=== PATIENT | male | born 1970 | race American Indian/Alaskan Native ===

== ENCOUNTER 2021-12-10 13:20 | Observation (INO) | payer SELFPAY ==
--- NOTE | 2021-12-10 14:54 | XRay Report ---
CHEST 2 VIEWS INDICATION / CLINICAL INFORMATION: shortness of breath. COMPARISON: None available. FINDINGS: SUPPORT DEVICES: None. HEART / MEDIASTINUM: No significant abnormality. LUNGS / PLEURA: No significant pulmonary abnormality. No significant pleural effusion. No pneumothora x. ADDITIONAL FINDINGS: No significant additional findings. IMPRESSION: 1. No acute abnormality of the chest. Signer Name: Benito Up MD Signed: 12/10/2021 2:50 PM Workstation Name: [id number]
--- NOTE | 2021-12-10 15:13 | Emergency Department Report ---
<CELENA BARNES L - Last Filed: 12/10/21 17:21> ED General Adult HPI - General Chief complaint: Dyspnea/Respdistress Stated complaint: AVE Source: patient Mode of arrival: Ambulatory Limitations: No Limitations - History of Present Illness Initial comments: 51-year-old male presents to the ED complaining of headache ,shortness of breath and runny nose. Patient states the symptoms started this a.m.. Patient is alert and oriented x3. No acute distress noted. No ill appearance noted. She denies any chest pain or nausea /vomiting . Patient is talking on phone. Patient states that he is Covid vaccinated. Severity scale (0 -10): 0 Associated Symptoms: denies other symptoms - Related Data Allergies Allergy/AdvReac Type Severity Reaction Status Date / Time No Known Allergies Allergy Unverified 12/10/21 15:49 ED Review of Systems Constitutional: denies: chills, fever Eyes: denies: eye pain, eye discharge, vision change ENT: denies: ear pain, throat pain Respiratory: denies: cough, shortness of breath, wheezing Cardiovascular: denies: chest pain, palpitations Endocrine: no symptoms reported Gastrointestinal: denies: abdominal pain, nausea, diarrhea Genitourinary: denies: urgency, dysuria Musculoskeletal: denies: back pain, joint swelling, arthralgia Skin: denies: rash, lesions Neurological: denies: headache, weakness, paresthesias Psychiatric: denies: anxiety, depression Hematological/Lymphatic: denies: easy bleeding, easy bruising ED Physical Exam - General Limitations: No Limitations General appearance: alert, in no apparent distress - Head Head exam: Present: atraumatic, normocephalic - Eye Eye exam: Present: normal appearance - ENT ENT exam: Present: mucous membranes moist - Neck Neck exam: Present: normal inspection - Respiratory Respiratory exam: Present: normal lung sounds bilaterally. Absent: respiratory distress - Cardiovascular Cardiovascular Exam: Present: regular rate, normal rhythm. Absent: systolic murmur, diastolic murmur, rubs, gallop - GI/Abdominal GI/Abdominal exam: Present: soft, normal bowel sounds - Rectal Rectal exam: Present: deferred - Extremities Exam Extremities exam: Present: normal inspection - Back Exam Back exam: Present: normal inspection - Neurological Exam Neurological exam: Present: alert, oriented X3 - Psychiatric Psychiatric exam: Present: normal affect, normal mood - Skin Skin exam: Present: warm, dry, intact, normal color. Absent: rash ED Medical Decision Making - Radiology Data [facility] [address] [place] [address] XRay Report Signed Patient: SALO SIMMS MR#: [id number] 4 : 1970 Acct:[id number] Age/Sex: 51 / M ADM Date: 12/10/21 Loc: ED Attending Dr: Ordering Physician: YULIYA JENNINGS Date of Service: 12/10/21 Procedure(s): XR chest routine 2V Accession Number(s): [id number] cc: YULIYA JENNINGS Fluoro Time In Minutes: CHEST 2 VIEWS INDICATION / CLINICAL INFORMATION: shortness of breath. COMPARISON: None available. FINDINGS: SUPPORT DEVICES: None. HEART / MEDIASTINUM: No significant abnormality. LUNGS / PLEURA: No significant pulmonary abnormality. No significant pleural effusion. No pneumothorax. ADDITIONAL FINDINGS: No significant additional findings. IMPRESSION: 1. No acute abnormality of the chest. Signer Name: Benito Up MD Signed: 12/10/2021 2:50 PM Workstation Name: [id number] Transcribed By: [place] Dictated By: Benito Up MD Electronically Authenticated By: Benito Up MD Signed Date/Time: 12/10/21 145 DD/ 144 TD/TT: - Medical Decision Making 51-year-old male presents to the ED complaining of headache ,shortness of breath and runny nose. Patient states the symptoms started this a.m.. Patient is alert and oriented x3. No acute distress noted. No ill appearance noted. She denies any chest pain or nausea /vomiting . Patient is talking on phone. Patient states that he is Covid vaccinated. Physical examination unremarkable. Chest x-ray showed no abnormality. Patient EKG is abnormal. consult with ,. Dr. Acevedo taking over patient ED Disposition Clinical Impression: Chest pain, Cocaine abuse Disposition: ADMITTED INPATIENT Is pt being admited?: No Does the pt Need Aspirin: No Condition: Stable Instructions: Nonspecific Chest Pain, Adult Additional Instructions: Return to ED for any worsening symptom Your symptoms appear most consistent with a nonspecific viral syndrome. However, given this current pandemic, COVID-19 is in the differential of possibilities. Despite your previous negative COVID-19 test, I do recommend repeat outpatient Covid 19 testing. In the meantime, isolate/quarantine yourself and stay away from anyone who is elderly, immunocompromised or chronically ill. You can use ibuprofen every 6-8 hours and Tylenol every 4-8 hours, using the dosing on the back of the bottle, as needed for any fever or body aches. Return to the emergency department with any worsening of your symptoms, development of chest pain or shortness of breath, or with any acute distress. Referrals: MIKE BLACKMAN MD [Primary Care Provider] - 3-5 Days <MARLENI ACEVEDO - Last Filed: 12/10/21 18:42> ED Review of Systems ROS: Stated complaint: AVE Other details as noted in HPI ED Course Vital Signs 12/10/21 12/10/21 12/10/21 14:08 15:45 16:15 Temperature 98.0 F Pulse Rate 89 82 74 Respiratory 18 14 22 Rate Blood Pressure 155/82 131/75 Blood Pressure 132/87 [Right] O2 Sat by Pulse 99 100 100 Oximetry 12/10/21 12/10/21 16:31 17:01 Temperature Pulse Rate 74 82 Respiratory 21 11 L Rate Blood Pressure 133/78 129/82 Blood Pressure [Right] O2 Sat by Pulse 100 100 Oximetry - Reevaluation(s) Reevaluation #1: 12/10/21 18:[address] segment elevation in V2-V5 spoke with dr Ramos he thinks it might be early regularization, recommended repeat EKG in1 hour and trop , repeat ekg didn't show any change to first one , trop was negative spoke to him again, he will take him for angiogram after CT 12/10/21 18:39 ED Medical Decision Making - Lab Data Result diagrams: 12/10/21 15:52 12/10/21 15:52 Critical care attestation.: If time is entered above; I have spent that time in minutes in the direct care of this critically ill patient, excluding procedure time. ED Disposition Is pt being admited?: Yes Does the pt Need Aspirin: Yes
[2021-12-10] MEDS ORDERED: SODIUM CHLORIDE 0.9% 1000 ML 1,000 ML IV ONE (16:30)
[2021-12-10] MEDS ORDERED: ENOXAPARIN 100 MG/1 ML INJ SUB-Q ONE (16:30)
[2021-12-10] MEDS ORDERED: ASPIRIN 325 MG TAB PO ONE ×2 (16:30→18:42)
[2021-12-10 16:32] LABS: Basophils % (Auto) 0.4 % (0.0-1.8); Eosinophils # (Auto) 0.1 K/mm3 (0.0-0.4); Eosinophils % (Auto) 1.4 % (0.0-4.3); Hematocrit 37.4 % (35.5-45.6); Lymphocytes # (Auto) 2.8 K/mm3 (1.2-5.4); Lymphocytes % (Auto) 31.4 % (13.4-35.0); Mean Corpuscular HGB Conc 35 % (32-34); Mean Corpuscular Volume 93 fl (84-94); Monocytes # (Auto) 0.8 K/mm3 (0.0-0.8); Monocytes % (Auto) 8.8 % (0.0-7.3); Platelet Count 334 K/mm3 (140-440); Red Blood Count 4.02 M/mm3 (3.65-5.03); Red Cell Distribution Width 14.1 % (13.2-15.2)
[2021-12-10 16:58] LABS: Alanine Aminotransferase 17 units/L (7-56); Albumin 4.5 g/dL (3.9-5); BUN/Creatinine Ratio 19; Blood Urea Nitrogen 15 mg/dL (9-20); Hemolysis Index 18
[2021-12-10 18:28] LABS: Bilirubin,Urine NEG (Negative); Blood,Urine SM (Negative); Color,Urine Yellow (Yellow); Mucus,Urine FEW /HPF; Protein,Urine <15 mg/dL mg/dL (Negative); Urobilinogen,Urine < 2.0 mg/dL (<2.0)
[2021-12-10] MEDS ORDERED: fentaNYL 100 MCG/2 ML INJ ONE (18:29)
[2021-12-10] MEDS ORDERED: MIDAZOLAM 2 MG/2 ML INJ ONE (18:29)
[2021-12-10] MEDS ORDERED: LIDOCAINE (2%) 20 MG/1 ML VIAL 20 ML MDV INFILTRATI ONE ×4 (18:29→19:56)
[2021-12-10] MEDS ORDERED: HEPARIN 10,000 UNITS/10 ML VIAL ONE (18:29)
[2021-12-10] MEDS ORDERED: VERAPAMIL 5 MG/2 ML INJ ONE (18:29)
[2021-12-10] MEDS ORDERED: HEPARIN/NS 5000 UNIT/500ML 1,000 ML IR ONE (18:29)
[2021-12-10] MEDS ORDERED: NITROGLYCERIN SYRINGE 3 ML ONE (18:30)
[2021-12-10] MEDS ORDERED: SODIUM CHLORIDE 0.9% 1000 ML 1,000 ML ONE (18:34)
--- NOTE | 2021-12-10 18:37 | Cat Scan Report ---
CTA CHEST WITH CONTRAST INDICATION / CLINICAL INFORMATION: SOB. TECHNIQUE: Axial CT images were obtained through the chest after injection of 75 cc of Omnipaque 350 IV contrast. 3 plane MIP and/or 3D reconstructions were produced. All CT scans at this location are p erformed using CT dose reduction for ALARA by means of automated exposure control. COMPARISON: Chest radiograph from earlier in the day FINDINGS: PULMONARY ARTERIES: No pulmonary emboli. THORACIC AORTA: No significant abnormality. HEART: No significant abnormality. CORONARY ARTERY CALCIFICATION: None. MEDIASTINUM / NANCY: No significant abnormality. PLEURA: No pleural effusion. No pneumothorax. LUNGS: Mild frontal lobe predominant paraseptal emphysema. No concerning mass, suspicious pulmonary n odule or focal consolidation. ADDITIONAL FINDINGS: None. UPPER ABDOMEN: No acute findings. SKELETAL STRUCTURES: There is increased sclerosis of the L1 right transverse process. There is acute fracture of the right L2 transverse process. There is ankylosis of the thoracic vertebrae.. IMPRESSION: 1. No CT evidence for pulmonary embolism. 2. No acute findings. 3. Mild upper lobe predominant paraseptal emphysema. 4. Sclerotic lesion involving the right transverse process of L1. Bone scan is recommended for furthe r evaluation. 5. Ankylosis and thoracic vertebrae. Signer Name: Alverto Price DO Signed: 12/10/2021 6:33 PM Workstation Name: [id number]
[2021-12-10 18:39] LABS: Amphetamine Screen,Urine PRESUMPTIVE NEGATIVE; Benzodiazepines Screen,Urine PRESUMPTIVE NEGATIVE; Cannabinoid Screen,Urine PRESUMPTIVE NEGATIVE; Cocaine Screen,Urine PRESUMPTIVE POSITIVE; Methadone Screen,Urine PRESUMPTIVE NEGATIVE; Opiate Screen,Urine PRESUMPTIVE NEGATIVE
[2021-12-10] MEDS ORDERED: MIDAZOLAM 2 MG/2 ML INJ IV ONE ×3 (18:46→19:54)
[2021-12-10] MEDS ORDERED: fentaNYL 100 MCG/2 ML INJ IV ONE ×3 (18:46→19:54)
[2021-12-10] MEDS ORDERED: ACETAMINOPHEN 325 MG TAB PO PRN (19:11)
[2021-12-10] MEDS ORDERED: ONDANSETRON 4 MG/2 ML INJ IV PRN (19:11)
[2021-12-10] MEDS ORDERED: MORPHINE 2 MG/1 ML INJ IV PRN (19:11)
[2021-12-10] MEDS ORDERED: HYDROmorphone 1 MG/1 ML INJ IV PRN (19:11)
[2021-12-10] MEDS ORDERED: SODIUM CHLORIDE 0.9% 1000 ML 1,000 ML IV SCH (19:15)
[2021-12-10] MEDS ORDERED: VERAPAMIL 5 MG/2 ML INJ ART-SHEATH ONE (19:56)
[2021-12-10] MEDS ORDERED: NITROGLYCERIN 600 MCG/3 ML SYRINGE ART-SHEATH ONE (19:56)
[2021-12-10] MEDS ORDERED: HEPARIN 10,000 UNITS/10 ML VIAL ART-SHEATH ONE (19:56)
--- NOTE | 2021-12-10 20:22 | Consultation ---
History of Present Illness Consult date: 12/10/21 Consult reason: chest pain, shortness of breath, other (Abnormal EKG) History of present illness: The patient is a 51-year-old man with no prior cardiac history, presented to the emergency room with shortness of breath which began earlier today. ECG done in the emergency room showed J-point elevation across the precordium V2 through V6, with no reciprocal changes. The morphology of the ECG was consistent with normal variant early repolarization NOT ST elevation myocardial infarction. Unfortunately, we were unable to access a prior ECG for comparison, but patient reported recurrent symptoms, cardiac catheterization was recommended for recurrent symptoms in the setting of a noncardiac diagnostic ECG. Cardiac catheterization performed via the right radial approach found essentially angiographically normal coronary arteries, and normal left ventricular systolic function with ejection fraction 60%. Past History Past Medical History: other (Tobacco abuse, cocaine abuse) Medications and Allergies Allergies Allergy/AdvReac Type Severity Reaction Status Date / Time No Known Allergies Allergy Unverified 12/10/21 15:49 Active Meds: Active Medications Acetaminophen (Acetaminophen 325 Mg Tab) 650 mg PO Q4H PRN PRN Reason: Pain MILD(1-3)/Fever >100.5/DUMONT Famotidine (Famotidine 20 Mg/2 Ml Inj) 20 mg IV BID [facility] Heparin Sodium (Porcine) (Heparin 5,000 Unit/1 Ml Vial) 5,000 unit SUB-Q Q12HR THAO Hydromorphone HCl (Hydromorphone 1 Mg/1 Ml Inj) 0.5 mg IV Q3H PRN PRN Reason: Pain , Severe (7-10) Sodium Chloride (Nacl 0.9% 1000 Ml) 1,000 mls @ 100 mls/hr IV DIRECT THAO Morphine Sulfate (Morphine 2 Mg/1 Ml Inj) 2 mg IV Q4H PRN PRN Reason: Pain, Moderate (4-6) Ondansetron HCl (Ondansetron 4 Mg/2 Ml Inj) 4 mg IV Q8H PRN PRN Reason: Nausea And Vomiting Sodium Chloride (Sodium Chloride 0.9% 10 Ml Flush Syringe) 10 ml IV BID THAO Sodium Chloride (Sodium Chloride 0.9% 10 Ml Flush Syringe) 10 ml IV PRN PRN PRN Reason: LINE FLUSH Review of Systems Cardiovascular: chest pain, shortness of breath, no orthopnea, no palpitations, no rapid/irregular heart beat, no edema, no syncope, no lightheadedness Physical Examination Vital Signs Temp Pulse Resp BP Pulse Ox 98.0 F 89 18 132/87 99 12/10/21 14:08 12/10/21 14:08 12/10/21 14:08 12/10/21 14:08 12/10/21 14:08 General appearance: no acute distress HEENT: Positive: PERRL Neck: Positive: neck supple Cardiac: Positive: Reg Rate and Rhythm Lungs: Positive: Decreased Breath Sounds Neuro: Positive: Grossly Intact Abdomen: Positive: Soft Male genitourinary: Positive: deferred Skin: Positive: Clear Extremities: Absent: edema Results 12/10/21 15:52 12/10/21 15:52 Cardiac Enzymes 12/10/21 Range/Units 15:52 AST 26 (5-40) units/L Coagulation 12/10/21 Range/Units 15:52 PT 14.3 (12.2-14.9) Sec. INR 1.00 (0.87-1.13) CBC 12/10/21 Range/Units 15:52 WBC 8.8 (4.5-11.0) K/mm3 RBC 4.02 (3.65-5.03) M/mm3 Hgb 13.0 (11.8-15.2) gm/dl Hct 37.4 (35.5-45.6) % Plt Count 334 (140-440) K/mm3 Lymph # (Auto) 2.8 (1.2-5.4) K/mm3 [place] # (Auto) 0.8 (0.0-0.8) K/mm3 Eos # (Auto) 0.1 (0.0-0.4) K/mm3 Baso # (Auto) 0.0 (0.0-0.1) K/mm3 Comprehensive Metabolic Panel 12/10/21 Range/Units 15:52 Sodium 143 (137-145) mmol/L Potassium 3.9 (3.6-5.0) mmol/L Chloride 103.4 (98-107) mmol/L Carbon Dioxide 24 (22-30) mmol/L BUN 15 (9-20) mg/dL Creatinine 0.8 (0.8-1.3) mg/dL Glucose 79 (75-100) mg/dL Calcium 10.0 (8.4-10.2) mg/dL AST 26 (5-40) units/L ALT 17 (7-56) units/L Alkaline Phosphatase 70 (35-129) units/L Total Protein 7.6 (6.3-8.2) g/dL Albumin 4.5 (3.9-5) g/dL EKG interpretations - Telemetry EKG Rhythm: Sinus Rhythm (With diffuse J-point elevation across the precordium, consistent with normal variant early repolarization) Assessment and Plan - Patient Problems (1) Chest pain Current Visit: Yes Status: Acute Plan to address problem: Patient presented with chest pain and ECG consistent with diffuse J-point elevation of normal variant early repolarization. Due to recurrent persistent chest pain and shortness of breath, we proceeded with immediate cardiac catheterization, we found angiographically normal coronary arteries and normal left ventricular systolic function. No further cardiac ischemic work-up is indicated, we will refer to internal medicine and pulmonary for further work-up of non-cardiac etiologies of chest pain and shortness of breath.
--- NOTE | 2021-12-10 20:25 | Cardiac Catherization Report ---
DATE OF SERVICE: 12/10/2021 CARDIAC CATHETERIZATION REASON FOR PROCEDURE: Shortness of breath and abnormal EKG. The patient is a 51-year-old man who presented to the Emergency Room with dyspnea. An EKG showed a diffuse J-point elevation across the anterior precordial leads. The assessment of the EKG was likely a normal variant early repolarization, but due to recurrent symptoms, the patient was recommended for cardiac catheterization. PROCEDURES: 1. Left heart catheterization. 2. Selective left and right coronary angiography. 3. Left ventricular angiography. 4. Sedation time start 1950 2001. DESCRIPTION OF PROCEDURE: The patient was prepped and draped in a sterile fashion after informed consent. The right radial cath site was prepped and draped after negative Aakash's test. The right radial artery was entered using the Seldinger technique followed by placement of a 6-Indonesian hydrophilic sheath. Routine radial cocktail was administered via the sheath. Selective left and right coronary angiography was performed using #3.5 left Ruby and a #4 right Ruby. The right Ruby was used for left ventricular angiography. The right Ruby was used for left ventricular angiography. The catheters were then removed, sheath removed and hemostasis achieved using TR band. The patient was returned to the postprocedure unit in stable condition. There were no complications. HEMODYNAMICS: Left ventricular end-diastolic pressure was 26, following coronary angiography. Ascending aortic pressure 133/84. There was no significant pressure gradient on pullback across the aortic valve. CORONARY ANGIOGRAPHY: The left main coronary artery was angiographically normal. The left anterior descending artery and its diagonal branches were free of significant disease. The circumflex artery was of large caliber, codominant with the right coronary artery, this vessel and its obtuse marginal branches were angiographically normal. The right coronary artery as reported was codominant and similarly angiographically normal. There was normal left ventricular systolic function, ejection fraction 60%. CONCLUSION: 1. Angiographically normal coronary arteries. 2. Normal left ventricular systolic function, ejection fraction 60%. RECOMMENDATIONS: 1. Risk factor modification. 2. Refer for noncardiac etiologies of chest pain and shortness of breath. TID: [id number] RECEIPT: [id number] [facility]
[2021-12-11] MEDS: HEPARIN 5,000 UNIT/1 ML VIAL SUB-Q SCH ×2 (00:14→09:52)
[2021-12-11] MEDS: FAMOTIDINE 20 MG/2 ML INJ IV SCH ×2 (00:14→09:54)
--- NOTE | 2021-12-11 06:16 | History and Physical Report ---
History of Present Illness Date of examination: 12/10/21 Date of admission: 12/10/21 19:11 Chief complaint: Recurrent chest pain since a.m. History of present illness: 51-year-old male with no known past medical history comes to the emergency room for retrosternal chest pain since a.m. Also complains of headaches and shortness of breath. Patient uses cocaine intermittently. Chest pain is retrosternal and nonradiating. Chest pain is sharp and about 8 on a scale of 1-10. Nonradiating. No diaphoresis. Slight shortness of breath present. No exacerbating or relieving factors. Except for cocaine. No fever or chills. Vaccine status for Covid unknown. ED course--patient being taken to the cardiac [facility] for emergent catheterization because of the persistent ST elevations in V2 to V6. Enzymes are negative. Past History Past Medical History: other (Tobacco abuse, cocaine abuse) Past Surgical History: No surgical history Social history: lives with family, full code Family history: hypertension Review of Systems Constitutional: denies: chills, fever Eyes: denies: eye pain, eye discharge, vision change ENT: denies: ear pain, throat pain Respiratory: denies: cough, shortness of breath, wheezing Cardiovascular: Sharp chest pain which is retrosternal Endocrine: no symptoms reported Gastrointestinal: denies: abdominal pain, nausea, diarrhea Genitourinary: denies: urgency, dysuria Musculoskeletal: denies: back pain, joint swelling, arthralgia Skin: denies: rash, lesions Neurological: denies: headache, weakness, paresthesias Psychiatric: denies: anxiety, depression Hematological/Lymphatic: denies: easy bleeding, easy bruising Medications and Allergies Allergies Allergy/AdvReac Type Severity Reaction Status Date / Time No Known Allergies Allergy Unverified 12/10/21 15:49 Active Meds: Active Medications Acetaminophen (Acetaminophen 325 Mg Tab) 650 mg PO Q4H PRN PRN Reason: Pain MILD(1-3)/Fever >100.5/DUMONT Famotidine (Famotidine 20 Mg/2 Ml Inj) 20 mg IV BID [facility] Last Admin: 12/11/21 00:14 Dose: 20 mg Heparin Sodium (Porcine) (Heparin 5,000 Unit/1 Ml Vial) 5,000 unit SUB-Q Q12HR [facility] Last Admin: 12/11/21 00:14 Dose: 5,000 unit Hydromorphone HCl (Hydromorphone 1 Mg/1 Ml Inj) 0.5 mg IV Q3H PRN PRN Reason: Pain , Severe (7-10) Morphine Sulfate (Morphine 2 Mg/1 Ml Inj) 2 mg IV Q4H PRN PRN Reason: Pain, Moderate (4-6) Ondansetron HCl (Ondansetron 4 Mg/2 Ml Inj) 4 mg IV Q8H PRN PRN Reason: Nausea And Vomiting Sodium Chloride (Sodium Chloride 0.9% 10 Ml Flush Syringe) 10 ml IV BID [facility] Last Admin: 12/11/21 00:14 Dose: 10 ml Sodium Chloride (Sodium Chloride 0.9% 10 Ml Flush Syringe) 10 ml IV PRN PRN PRN Reason: LINE FLUSH Exam - Constitutional Vitals: Temp Pulse Resp BP Pulse Ox 98.6 F 61 16 137/79 100 12/11/21 00:32 12/11/21 00:32 12/11/21 00:32 12/11/21 00:32 12/11/21 00:32 General appearance: Present: no acute distress, well-nourished - EENT Eyes: Present: PERRL ENT: hearing intact, clear oral mucosa - Neck Neck: Present: supple, normal ROM - Respiratory Respiratory effort: normal Respiratory: bilateral: CTA - Cardiovascular Heart rate: 78 Rhythm: regular Heart Sounds: Present: S1 & S2. Absent: rub, click - Extremities Extremities: pulses symmetrical, No edema Peripheral Pulses: within normal limits - Abdominal General gastrointestinal: Present: soft, non-tender, non-distended, normal bowel sounds Male genitourinary: Present: normal - Integumentary Integumentary: Present: clear, warm, dry - Musculoskeletal Musculoskeletal: gait normal, strength equal bilaterally - Psychiatric Psychiatric: appropriate mood/affect, intact judgment & insight - Neurologic Neurologic: CNII-XII intact, moves all extremities HEART Score - HEART Score Troponin: Troponin T < 0.010 ng/mL (0.00-0.029) 12/11/21 00:55 Results - Labs CBC & Chem 7: 12/10/21 15:52 12/10/21 15:52 Labs: Laboratory Last Values WBC 8.8 K/mm3 (4.5-11.0) 12/10/21 15:52 RBC 4.02 M/mm3 (3.65-5.03) 12/10/21 15:52 Hgb 13.0 gm/dl (11.8-15.2) 12/10/21 15:52 Hct 37.4 % (35.5-45.6) 12/10/21 15:52 MCV 93 fl (84-94) 12/10/21 15:52 MCH 32 pg (28-32) 12/10/21 15:52 MCHC 35 % (32-34) H 12/10/21 15:52 RDW 14.1 % (13.2-15.2) 12/10/21 15:52 Plt Count 334 K/mm3 (140-440) 12/10/21 15:52 Lymph % (Auto) 31.4 % (13.4-35.0) 12/10/21 15:52 [place] % (Auto) 8.8 % (0.0-7.3) H 12/10/21 15:52 Eos % (Auto) 1.4 % (0.0-4.3) 12/10/21 15:52 Baso % (Auto) 0.4 % (0.0-1.8) 12/10/21 15:52 Lymph # (Auto) 2.8 K/mm3 (1.2-5.4) 12/10/21:52 [place] # (Auto) 0.8 K/mm3 (0.0-0.8) 12/10/21 15:52 Eos # (Auto) 0.1 K/mm3 (0.0-0.4) 12/10/21:52 Baso # (Auto) 0.0 K/mm3 (0.0-0.1) 12/10/21 15:52 Seg Neutrophils % 58.0 % (40.0-70.0) 12/10/21:52 Seg Neutrophils # 5.1 K/mm3 (1.8-7.7) 12/10/21 15:52 PT 14.3 Sec. (12.2-14.9) 12/10/21 15:52 INR 1.00 (0.87-1.13) 12/10/21 15:52 D-Dimer 239.46 ng/mlDDU (0-234) H 12/10/21 15:52 Sodium 143 mmol/L (137-145) 12/10/21 15:52 Potassium 3.9 mmol/L (3.6-5.0) 12/10/21 15:52 Chloride 103.4 mmol/L (98-107) 12/10/21 15:52 Carbon Dioxide 24 mmol/L (22-30) 12/10/21 15:52 Anion Gap 20 mmol/L 12/10/21 15:52 BUN 15 mg/dL (9-20) 12/10/21 15:52 Creatinine 0.8 mg/dL (0.8-1.3) 12/10/21 15:52 Estimated GFR > 60 ml/min 12/10/21 15:52 BUN/Creatinine Ratio 19 % 12/10/21 15:52 Glucose 79 mg/dL (75-100) 12/10/21 15:52 Calcium 10.0 mg/dL (8.4-10.2) 12/10/21 15:52 Total Bilirubin 0.60 mg/dL (0.1-1.2) 12/10/21 15:52 AST 26 units/L (5-40) 12/10/21 15:52 ALT 17 units/L (7-56) 12/10/21 15:52 Alkaline Phosphatase 70 units/L (35-129) 12/10/21 15:52 Troponin T < 0.010 ng/mL (0.00-0.029) 12/11/21 00:55 Total Protein 7.6 g/dL (6.3-8.2) 12/10/21 15:52 Albumin 4.5 g/dL (3.9-5) 12/10/21 15:52 Albumin/Globulin Ratio 1.5 % 12/10/21 15:52 Lipase 11 units/L (13-60) L 12/10/21 15:52 Urine Color Yellow (Yellow) 12/10/21 18:16 Urine Turbidity Clear (Clear) 12/10/21 18:16 Urine pH 5.0 (5.0-7.0) 12/10/21 18:16 Ur Specific [place] 1.033 (1.003-1.030) H 12/10/21 18:16 Urine Protein <15 mg/dl mg/dL (Negative) 12/10/21 18:16 Urine Glucose (UA) Neg mg/dL (Negative) 12/10/21 18:16 Urine Ketones 20 mg/dL (Negative) 12/10/21 18:16 Urine Blood Sm (Negative) 12/10/21 18:16 Urine Nitrite Neg (Negative) 12/10/21 18:16 Urine Bilirubin Neg (Negative) 12/10/21 18:16 Urine Urobilinogen < 2.0 mg/dL (<2.0) 12/10/21 18:16 Ur Leukocyte Esterase Neg (Negative) 12/10/21 18:16 Urine WBC (Auto) 2.0 /HPF (0.0-6.0) 12/10/21 18:16 Urine RBC (Auto) 11.0 /HPF (0.0-6.0) 12/10/21 18:16 U Epithel Cells (Auto) 1.0 /HPF (0-13.0) 12/10/21 18:16 Urine Mucus Few /HPF 12/10/21 18:16 Urine Opiates Screen Presumptive negative 12/10/21 18:16 Urine Methadone Screen Presumptive negative 12/10/21 18:16 Ur Barbiturates Screen Presumptive negative 12/10/21 18:16 Ur Phencyclidine Scrn Presumptive negative 12/10/21 18:16 Ur Amphetamines Screen Presumptive negative 12/10/21 18:16 U Benzodiazepines Scrn Presumptive negative 12/10/21 18:16 Urine Cocaine Screen Presumptive positive 12/10/21 18:16 U Marijuana (THC) Screen Presumptive negative 12/10/21 18:16 Drugs of Abuse Note Disclamer 12/10/21 18:16 Short CBC 12/10/21 Range/Units 15:52 WBC 8.8 (4.5-11.0) K/mm3 Hgb 13.0 (11.8-15.2) gm/dl Hct 37.4 (35.5-45.6) % Plt Count 334 (140-440) K/mm3 BMP 12/10/21 15:52 Sodium 143 Potassium 3.9 Chloride 103.4 Carbon Dioxide 24 BUN 15 Creatinine 0.8 Glucose 79 Calcium 10.0 Cardiac Enzymes 12/10/21 12/11/21 Range/Units 15:52 00:55 Troponin T < 0.010 < 0.010 (0.00-0.029) ng/mL Liver Function 12/10/21 Range/Units 15:52 Total Bilirubin 0.60 (0.1-1.2) mg/dL AST 26 (5-40) units/L ALT 17 (7-56) units/L Alkaline Phosphatase 70 (35-129) units/L Albumin 4.5 (3.9-5) g/dL Urine 12/10/21 Range/Units 18:16 Urine Color Yellow (Yellow) Urine pH 5.0 (5.0-7.0) Ur Specific [place] 1.033 H (1.003-1.030) Urine Protein <15 mg/dl (Negative) mg/dL Urine Glucose (UA) Neg (Negative) mg/dL - Imaging and Cardiology EKG: report reviewed Chest x-ray: report reviewed Imaging and Cardiology: Chest CTA No CT evidence for pulmonary embolism No acute findings Mild upper lobe predominant paraseptal emphysema Sclerotic lesion involving the right transverse process of L1 Ankylosis of thoracic vertebrae Chest x-ray No acute abnormality of the chest' EKG J-point elevation across the precordium V2 through V6, with no reciprocal changes. The morphology of the ECG was consistent with normal variant early repolarization NOT ST elevation myocardial infarction. No previous EKG for comparison Assessment and Plan Advance Directives: Yes (Full code) VTE prophylaxis?: Chemical Plan of care discussed with patient/family: Yes - Patient Problems (1) Acute coronary syndrome Current Visit: Yes Status: Acute Plan to address problem: Probably secondary to cocaine use Patient had cardiac cath which was normal Admit for observation and discharge tomorrow if troponins are negative (2) Cocaine abuse Current Visit: Yes Status: Chronic Plan to address problem: Patient counseled about cocaine and coronary vasospasm (3) Elevated d-dimer Current Visit: Yes Status: Chronic Plan to address problem: CTA chest was normal (4) DVT prophylaxis Current Visit: Yes Status: Acute Plan to address problem: On anticoagulation GI prophylaxis (5) Advance care planning Current Visit: Yes Status: Acute Plan to address problem: Disease education conducted, care plan discussed, diagnosis discussed, prognosis discussed. Patient is full code. Patient acknowledges understanding and agreement with care plan. +30 minutes.
--- NOTE | 2021-12-11 06:25 | Event Note ---
Date: 12/10/21 Cath findings were negative Normal coronaries First 2 troponins are normal Patient may be discharged in the morning if third troponin is negative Patient to be counseled about cocaine abuse again
[2021-12-11 08:35] VITALS: BP 115/71
[2021-12-11 08:42] LABS: Basophils # (Auto) 0.1 K/mm3 (0.0-0.1); Basophils % (Auto) 1.1 % (0.0-1.8); Eosinophils # (Auto) 0.2 K/mm3 (0.0-0.4); Hematocrit 37.4 % (35.5-45.6); Hemoglobin 12.1 gm/dl (11.8-15.2); Lymphocytes # (Auto) 1.9 K/mm3 (1.2-5.4); Mean Corpuscular HGB Conc 32 % (32-34); Mean Corpuscular Volume 94 fl (84-94); Monocytes # (Auto) 0.4 K/mm3 (0.0-0.8); Monocytes % (Auto) 7.2 % (0.0-7.3); Platelet Count 315 K/mm3 (140-440); Red Blood Count 3.97 M/mm3 (3.65-5.03); Red Cell Distribution Width 14.1 % (13.2-15.2)
[2021-12-11 08:49] LABS: Alanine Aminotransferase 14 units/L (7-56); Albumin 3.7 g/dL (3.9-5); BUN/Creatinine Ratio 14; Blood Urea Nitrogen 11 mg/dL (9-20); Calcium 9.1 mg/dL (8.4-10.2); Hemolysis Index 6
--- NOTE | 2021-12-11 09:38 | Electrocardiograph Report ---
[facility] Test Date: 2021-12-10 Test Time: 15:19:28 Pat Name: SALO SIMMS JR Department: Room: A456 1 Gender: M Presser First: NANDA : 1970 Requested By: CELENA BARNES Order Number: [id number] Reading MD: Prabhakar Rodriguez Measurements Intervals [place] Rate: 73 P: 77 ND: 157 QRS: 22 QRSD: 77 T: 31 QT: 397 QTc: 438 Interpretive Statements Sinus rhythm Anterior infarct, acute No previous ECG available for comparison Electronically Signed On 12-11-2021 9:38:18 EST by Prabhakar Rodriguez
--- NOTE | 2021-12-11 09:39 | Electrocardiograph Report ---
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
--- NOTE | 2021-12-11 14:34 | Discharge Summary ---
Providers - Providers Date of Admission: 12/10/21 19:11 Date of discharge: 12/11/21 Attending physician: MURRAY GUZMÁN MD 12/10/21 20:25 Consult to Cardiac Rehabilitation [CONS] Routine Reason For Exam: Cardiac Rehab Evaluation Primary care physician: MIKE BLACKMAN Hospitalization Condition: Stable Hospital course: 51-year-old male with no known past medical history comes to the emergency room for retrosternal chest pain, shortness of breath and headache. Urine exam positive for cocaine. He did admit to using cocaine intermittently. CBC, CMP and troponins x3 normal. Vital signs stable. D-dimer normal, 2008. However CTA was obtained to ED which showed no PE. Incidentally showed an acute fracture of right tonsils process of L2 vertebra. Also noted increasing sclerosis of L1 transverse process. Ankylosis of thoracic vertebra noted. EKG in ED showed J-point elevation across the precordium V2 through V6, with no reciprocal changes. The morphology of the ECG was consistent with normal variant early repolarization NOT ST elevation myocardial infarction. Since no prior EKG available for comparison and prior ECG for comparison and cardiac catheterization was was performed for recurrent symptoms in the setting of a noncardiac diagnostic ECG. Cardiac catheterization performed via the right radial approach found essentially angiographically normal coronary arteries, and normal left ventricular systolic function with ejection fraction 60%. Patient discharged in stable condition for outpatient follow-up abnormal spine skeletal findings noted on CT. Patient and his verbalized their understanding of the post discharge plan/care. Patient was strongly encouraged not to use illicit drugs including cocaine. Discharge diagnosis: Chest pains induced by cocaine abuse Negative troponins and J-point elevation on EKG, left heart cath showed normal coronaries, LVEF 60%. Incidental finding of acute fracture of the right transverse process of L2 and increase aggressive transfers of L1. Ankylosis of the thoracic spine. Disposition: 01 HOME / SELF CARE / HOMELESS Final Discharge Diagnosis (Prints w/discharge instructions): Chest pains induced by cocaine abuse. Negative troponins and J-point elevation on EKG, left heart cath showed normal coronaries, LVEF 60%. Incidental finding of acute fracture of the right transverse process of L2 and increase aggressive transfers of L1. Ankylosis of the thoracic spine. Time spent for discharge: 35 minutes Core Measure Documentation - Palliative Care Palliative Care/ Comfort Measures: Not Applicable - Core Measures Any of the following diagnoses?: none Exam - Constitutional Vitals: Temp Pulse Resp BP Pulse Ox 98.2 F 63 18 115/71 100 12/11/21 07:42 12/11/21 07:42 12/11/21 07:42 12/11/21 07:42 12/11/21 07:42 General appearance: Present: no acute distress - EENT Eyes: Present: PERRL, EOM intact ENT: clear oral mucosa - Neck Neck: Present: supple - Respiratory Respiratory effort: normal Respiratory: bilateral: CTA - Cardiovascular Rhythm: regular - Extremities Extremities: No edema - Abdominal General gastrointestinal: Present: soft, non-tender, non-distended - Integumentary Integumentary: Absent: rash - Musculoskeletal Musculoskeletal: strength equal bilaterally - Neurologic Neurologic: no focal deficits, moves all extremities Plan Activity: advance as tolerated Diet: regular Additional Instructions: CT scan showed acute fracture transverse process of L2 vertebra and sclerosis of L1 transverse process. Ankylosis of thoracic spine also noted. Having these findings followed by your family doctor in a week. Follow up with: MIKE BLACKMAN MD [Primary Care Provider] - 3-5 Days
[2021-12-11] MEDS ORDERED: FAMOTIDINE 20 MG TAB PO SCH (22:00)
== END 2021-12-11 17:15 | disposition home or self-care (01) ==
LOC: ED 13:20 → 4A 19:11
PROVIDERS: ADMIT Internal Medicine; ATTEND Internal Medicine
DX: I24.9 Acute ischemic heart disease, unspecified (principal); R07.89 Other chest pain; F14.10 Cocaine abuse, uncomplicated; R77.8 Other specified abnormalities of plasma proteins; F17.200 Nicotine dependence, unspecified, uncomplicated; Z79.899 Other long term (current) drug therapy; Z98.890 Other specified postprocedural states
CPT/HCPCS: 36415; 71046; 71275; 80053; 80307; 81001; 83690; 84484; 85025; 85379; 85610; 93005; 93010; 93458; 96372; 96374; 96376; 99285; C1894; G0378; J1644; J1650; J1815; J2250; J3010; J3490; J7030; Q9967; Q0162